=== PATIENT | male | born 1965 | race Two or more races ===

== ENCOUNTER 2016-05-22 15:19 | Emergency (ER) | payer BC ==
[2016-05-22 16:10] VITALS: BP 126/74
== END 2016-05-22 17:25 | disposition home or self-care (01) ==
LOC: ED 15:19
DX: H66.93 Otitis media, unspecified, bilateral (principal); J02.9 Acute pharyngitis, unspecified
CPT/HCPCS: J1100

== ENCOUNTER 2017-07-23 08:31 | Emergency (ER) | payer OTHER ==
[~2017-07-23] VITALS: Ht 175.3 cm; Wt 89.3 kg
[2017-07-23 08:36] VITALS: BP 146/107; Ht 175.3 cm; Wt 89.3 kg
[2017-07-23 09:28] LABS: microscopic required? NO
[2017-07-23 09:32] LABS: urine erythrocyte NEGATIVE (NEGATIVE)
== END 2017-07-23 11:02 | disposition home or self-care (01) ==
LOC: ED 08:31
PROVIDERS: Emergency Medicine
DX: R10.30 Lower abdominal pain, unspecified (principal)
CPT/HCPCS: 87491; 87591